=== PATIENT | female | born 1990 | race American Indian/Alaskan Native ===

== ENCOUNTER 2017-07-12 20:24 | Emergency (ER) | payer SELFPAY ==
[2017-07-12 22:11] LABS: Hematocrit 33.7 % (30.3-42.9); Hemoglobin 10.5 gm/dl (10.1-14.3); Mean Corpuscular HGB Conc 31 % (30-34); Mean Corpuscular Hemoglobin 22 pg (28-32); Mean Corpuscular Volume 70 fl (79-97); Platelet Count 397 K/mm3 (140-440); Red Blood Count 4.82 M/mm3 (3.65-5.03); Red Cell Distribution Width 18.2 % (13.2-15.2); White Blood Count 7.2 K/mm3 (4.5-11.0)
[2017-07-12 22:27] LABS: Anion Gap 19 mmol/L; BUN/Creatinine Ratio 15; Blood Urea Nitrogen 9 mg/dL (7-17); Calcium 9.3 mg/dL (8.4-10.2); Carbon Dioxide 25 mmol/L (22-30); Chloride 101.6 mmol/L (98-107); Glucose 86 mg/dL (65-100); Potassium 3.9 mmol/L (3.6-5.0); Sodium 142 mmol/L (137-145)
--- NOTE | 2017-07-12 23:47 | XRay Report ---
FINAL REPORT EXAM: XR TIBIA FIBULA 2V RT HISTORY: right anterior tibial discoloration TECHNIQUE: AP and lateral views of the right tibia and fibula PRIORS: None. FINDINGS: There is no evidence for acute fracture or dislocation. No soft tissue swelling or radiopaque foreign bodies are seen. Bony mineralization is normal and joint spaces are maintained. IMPRESSION: No acute bony or soft tissue abnormality noted.
[2017-07-12 23:52] LABS: INR 0.95 (0.87-1.13)
--- NOTE | 2017-07-13 00:12 | Emergency Department Report ---
[place] [facility] Chief Complaint: Skin Rash Stated Complaint: RIGHT LEG PAIN Time Seen by Provider: 07/12/17 22:51 ED Review of Systems ROS: Stated complaint: RIGHT LEG PAIN Other details as noted in HPI ED Past Medical Hx - Past Medical History Hx Hypertension: Yes Additional medical history: iron deficient anemia - Social History Smoking Status: Never Smoker Substance Use Type: None - Medications Home Medications: Home Medications Medication Instructions Recorded Confirmed Last Taken Type Ibuprofen [Motrin] 600 mg PO Q8H PRN #20 tablet 09/28/14 Unknown Rx Meclizine [Antivert] 25 mg PO TID PRN #14 tablet 09/28/14 Unknown Rx Sulfamethoxazole/Trimethoprim 1 each PO BID #14 tablet 09/28/14 Unknown Rx [Bactrim Ds] Aspirin EC [Aspirin Enteric Coated 81 mg PO QDAY #1 bottle 07/13/17 Unknown Rx TAB] Rash Exam - Exam General: Vital signs noted. No distress. Alert and acting appropriately. ED Course Vital Signs 07/12/17 07/12/17 21:02 21:36 Temperature 98.3 F 98.3 F Pulse Rate 88 85 Respiratory 18 18 Rate Blood Pressure 112/56 112/56 O2 Sat by Pulse 100 100 Oximetry ED Medical Decision Making - Lab Data Result diagrams: 07/12/17 21:48 07/12/17 21:48 - Medical Decision Making A/P: Superficial thrombophlebitis right lower extremity 1-d-dimer negative, low well's score unlikely to have DVT. X-ray unremarkable, coags platelet count and CBC unremarkable, LFTs within normal limits 2-NSAIDs when necessary 3-follow-up with primary care Critical care attestation.: If time is entered above; I have spent that time in minutes in the direct care of this critically ill patient, excluding procedure time. ED Disposition Clinical Impression: Superficial thrombophlebitis Qualifiers: Superficial thrombophlebitis-Involved body area: lower extremity Laterality: right Qualified Code(s): I80.01 - Phlebitis and thrombophlebitis of superficial vessels of right lower extremity Disposition: - TO HOME OR SELFCARE Is pt being admited?: No Does the pt Need Aspirin: No Condition: Stable Instructions: Superficial Thrombophlebitis (ED) Prescriptions: Aspirin EC [Aspirin Enteric Coated TAB] 81 mg PO QDAY #1 bottle Referrals: [facility] [place] [Outside] - 3-5 Days [facility] [Outside] - 3-5 Days Forms: Accompanied Note Time of Disposition: 00:01
[2017-07-13 00:14] VITALS: BP 103/63
== END 2017-07-13 00:14 | disposition home or self-care (01) ==
LOC: ED 20:24
DX: I80.01 Phlebitis and thrombophlebitis of superficial vessels of right lower extremity (principal); I10 Essential (primary) hypertension
CPT/HCPCS: 36415; 80048; 85027; 85379; 85610; 85730

== ENCOUNTER 2019-03-31 13:56 | Emergency (ER) | payer SELFPAY ==
--- NOTE | 2019-03-31 14:14 | Event Note ---
ED Screening Note Date of service: 03/31/19 Time: 14:11 ED Screening Note: This is a 28 y.o. F. that presents to the ER with vaginal discharge for 1 week. Reports pruritus. Denies urinary frequency, urgency, dysuria, pelvic pain, or back pain. LMP 03/14/2019, A0 This initial assessment/diagnostic orders/clinical plan/treatment(s) is/are subject to change based on patients health status, clinical progression and re- assessment by fellow clinical providers in the ED. Further treatment and workup at subsequent clinical providers discretion. Patient/guardian urged not to elope from the ED as their condition may be serious if not clinically assessed and managed. Initial orders include: Labs Pelvic exam
[2019-03-31 15:50] LABS: HCG Qualitative,Urine Negative (Negative)
[2019-03-31 15:55] LABS: Bilirubin,Urine NEG (Negative); Color,Urine Yellow (Yellow)
[2019-03-31 15:56] LABS: Bacteria,Urine 1+ /HPF (Negative); Blood,Urine NEG (Negative); Mucus,Urine 2+ /HPF; Protein,Urine <15 mg/dL mg/dL (Negative)
[2019-03-31] MEDS ORDERED: KEFLEX PO ONE (19:58)
[2019-03-31] MEDS ORDERED: IBUPROFEN PO ONE (19:58)
[2019-03-31] MEDS ORDERED: TYLENOL PO ONE (19:58)
[2019-03-31] MEDS ORDERED: ZITHROMAX PO ONE (20:00)
[2019-03-31] MEDS ORDERED: ROCEPHIN IM ONE (20:00)
[2019-03-31] MEDS ORDERED: XYLOCAINE 1% MPF 5 mL INFILTRATI ONE (20:00)
--- NOTE | 2019-03-31 21:11 | Emergency Department Report ---
ED Female HPI - General Chief complaint: Urogenital-Female Stated complaint: VAGINAL BACTERIA Time Seen by Provider: 03/31/19 14:11 Source: patient Mode of arrival: Ambulatory Limitations: No Limitations - History of Present Illness Initial comments: Patient is a 28-year-old [place] female with no past medical history who presents to the ED with a complaint of acute onset persistent dysuria, urinary frequency and urgency, vaginal discharge, and low back pain. Patient states that she is sexually active with no contraceptives. Patient denies abdominal pain, diarrhea, nausea, vomiting, chest pain, fever and chills, vaginal bleeding or cough and sore throat MD Complaint: vaginal discharge, dysuria, possible STD -: Sudden, week(s) (1) Location: suprapubic, other (vagina) Radiation: non-radiating Severity: moderate Severity scale (0 -10): 4 Quality: dull, burning Consistency: intermittent Improves with: none Worsens with: urination Are you Now?: No Last Menstrual Period: 03/18/19 EDC: 12/23/19 Associated Symptoms: vaginal discharge, dysuria. denies: vaginal bleeding, abdominal pain, nausea/vomiting, fever/chills, headaches, loss of appetite, hematuria, rash, shortness of breath, syncope, weakness, other - Related Data Sexually active: Yes Previous Rx's Medication Instructions Recorded Last Taken Type Ibuprofen [Motrin] 600 mg PO Q8H PRN #20 tablet 09/28/14 Unknown Rx Meclizine [Antivert] 25 mg PO TID PRN #14 tablet 09/28/14 Unknown Rx Sulfamethoxazole/Trimethoprim 1 each PO BID #14 tablet 09/28/14 Unknown Rx [Bactrim Ds] Aspirin EC [Halfprin EC] 81 mg PO QDAY #1 bottle 07/13/17 Unknown Rx Doxycycline Hyclate [Doxycycline 100 mg PO Q12HR #20 tab 03/31/19 Unknown Rx Hyclate TAB] Fluconazole [Diflucan TAB] 150 mg PO ONCE #2 tablet 03/31/19 Unknown Rx Sulfamethoxazole/Trimethoprim 1 each PO Q12H #20 tablet 03/31/19 Unknown Rx [Bactrim DS TAB] metroNIDAZOLE [Flagyl] 500 mg PO Q12HR #20 tab 03/31/19 Unknown Rx Allergies Allergy/AdvReac Type Severity Reaction Status Date / Time No Known Allergies Allergy Unverified 09/27/14 21:22 ED Review of Systems ROS: Stated complaint: VAGINAL BACTERIA Other details as noted in HPI Constitutional: denies: chills, fever Eyes: denies: eye pain, eye discharge, vision change ENT: denies: ear pain, throat pain Respiratory: denies: cough, shortness of breath, wheezing Cardiovascular: denies: chest pain, palpitations Endocrine: no symptoms reported Gastrointestinal: denies: abdominal pain, nausea, vomiting, diarrhea, constipation, hematemesis, melena, hematochezia Genitourinary: urgency, dysuria, frequency, discharge. denies: abnormal menses, dyspareunia Musculoskeletal: denies: back pain, joint swelling, arthralgia Skin: denies: rash, lesions Neurological: denies: headache, weakness, paresthesias Psychiatric: denies: anxiety, depression Hematological/Lymphatic: denies: easy bleeding, easy bruising ED Past Medical Hx - Past Medical History Previous Medical History?: Yes Hx Hypertension: Yes Additional medical history: iron deficient anemia - Surgical History Past Surgical History?: No - Social History Smoking Status: Never Smoker Substance Use Type: None - Medications Home Medications: Home Medications Medication Instructions Recorded Confirmed Last Taken Type Ibuprofen [Motrin] 600 mg PO Q8H PRN #20 tablet 09/28/14 Unknown Rx Meclizine [Antivert] 25 mg PO TID PRN #14 tablet 09/28/14 Unknown Rx Sulfamethoxazole/Trimethoprim 1 each PO BID #14 tablet 09/28/14 Unknown Rx [Bactrim Ds] Aspirin EC [Halfprin EC] 81 mg PO QDAY #1 bottle 07/13/17 Unknown Rx Doxycycline Hyclate [Doxycycline 100 mg PO Q12HR #20 tab 03/31/19 Unknown Rx Hyclate TAB] Fluconazole [Diflucan TAB] 150 mg PO ONCE #2 tablet 03/31/19 Unknown Rx Sulfamethoxazole/Trimethoprim 1 each PO Q12H #20 tablet 03/31/19 Unknown Rx [Bactrim DS TAB] metroNIDAZOLE [Flagyl] 500 mg PO Q12HR #20 tab 03/31/19 Unknown Rx ED Physical Exam - General Limitations: No Limitations General appearance: alert, in no apparent distress - Head Head exam: Present: atraumatic, normocephalic, normal inspection - Eye Eye exam: Present: normal appearance, PERRL, EOMI. Absent: scleral icterus, conjunctival injection, nystagmus, periorbital swelling, periorbital tenderness Pupils: Present: normal accommodation - ENT ENT exam: Present: normal exam, normal orophraynx, mucous membranes moist, TM's normal bilaterally, normal external ear exam - Neck Neck exam: Present: normal inspection, full ROM - Respiratory Respiratory exam: Present: normal lung sounds bilaterally. Absent: respiratory distress, wheezes, rales, rhonchi, stridor, chest wall tenderness, decreased breath sounds - Cardiovascular Cardiovascular Exam: Present: regular rate, normal rhythm, normal heart sounds. Absent: systolic murmur, diastolic murmur, rubs, gallop - GI/Abdominal GI/Abdominal exam: Present: soft, normal bowel sounds. Absent: tenderness, guarding, hyperactive bowel sounds, hypoactive bowel sounds, organomegaly - Rectal Rectal exam: Present: deferred - Bi-manual exam: Present: other (deferred, patient choice) - Extremities Exam Extremities exam: Present: normal inspection, full ROM, normal capillary refill - Back Exam Back exam: Present: normal inspection, full ROM. Absent: tenderness, CVA tenderness (R), CVA tenderness (L), muscle spasm, paraspinal tenderness, vertebral tenderness - Neurological Exam Neurological exam: Present: alert, oriented X3, CN II-XII intact, normal gait, reflexes normal - Psychiatric Psychiatric exam: Present: normal affect, normal mood - Skin Skin exam: Present: warm, dry, intact, normal color. Absent: rash ED Course Vital Signs 03/31/19 14:11 Temperature 98.4 F Pulse Rate 76 Respiratory 16 Rate Blood Pressure 111/55 O2 Sat by Pulse 100 Oximetry - Reevaluation(s) Reevaluation #1: 03/31/19 21:22 Patient is a 28 yo AA female who presents to the ED with c/o acute onset persistent vaginal discharge, dysuria, and urinary urgency and frequency x 1 week. In the ED, patient is alert and oriented 3 and is not in distress. Urinalysis shows significant urinary tract infection. Patient was treated empirically for STD as well as UTI and will decide on normal antibiotics. Patient advised to return to the ED immediately if symptoms get worse. Otherwise the patient was advised to follow-up with the [facility] Department for further STD tests. ED Medical Decision Making - Medical Decision Making Patient is a 28 yo AA female who presents to the ED with c/o acute onset persistent vaginal discharge, dysuria, and urinary urgency and frequency x 1 week. In the ED, patient is alert and oriented 3 and is not in distress. Urinalysis shows significant urinary tract infection. Patient was treated empirically for STD as well as UTI and will decide on normal antibiotics. Patient advised to return to the ED immediately if symptoms get worse. Otherwise the patient was advised to follow-up with the [facility] for further STD tests. - Differential Diagnosis Vaginal discharge; bacterial vaginosis; Acute UTI; STD Critical care attestation.: If time is entered above; I have spent that time in minutes in the direct care of this critically ill patient, excluding procedure time. ED Disposition Clinical Impression: Acute urinary tract infection, Bacterial vaginosis, STD (sexually transmitted disease) Disposition: TO HOME OR SELFCARE Is pt being admited?: No Does the pt Need Aspirin: No Condition: Stable Instructions: Bacterial Vaginosis (ED), Urinary Tract Infection in Women (ED), Sexually Transmitted Diseases (ED) Additional Instructions: Take medications with food, drink plenty of fluids and follow-up with the [facility] for further tests on STDs. Return to the ED immediately if symptoms get worse. Observe safe sexual practices Prescriptions: Sulfamethoxazole/Trimethoprim [Bactrim DS TAB] 1 each PO Q12H #20 tablet Fluconazole [Diflucan TAB] 150 mg PO ONCE #2 tablet Doxycycline Hyclate [Doxycycline Hyclate TAB] 100 mg PO Q12HR #20 tab metroNIDAZOLE [Flagyl] 500 mg PO Q12HR #20 tab Referrals: [facility] [Outside] - 3-5 Days [facility] [Outside] - 3-5 Days Forms: STI Treatment and Prevention Time of Disposition: 21:07 Print Language: MARSHALLESE
[2019-03-31 21:28] VITALS: BP 104/68
== END 2019-03-31 21:27 | disposition home or self-care (01) ==
LOC: ED 13:56
DX: N39.0 Urinary tract infection, site not specified (principal); N76.0 Acute vaginitis; A64 Unspecified sexually transmitted disease; I10 Essential (primary) hypertension
CPT/HCPCS: 81001; 81025; 87086; 96372; 99283; J0696